=== PATIENT | male | born 1970 | race Two or more races ===

== ENCOUNTER 2024-09-14 00:53 | Emergency (ER) | payer MEDICAID ==
[~2024-09-14] VITALS: Ht 175.3 cm; Wt 93.0 kg
[2024-09-14 02:13] VITALS: BP 136/94; TEMP 98; O2SAT 97
== END 2024-09-14 02:14 | disposition home or self-care (01) ==
LOC: ER 01:01
DX: S86.111A Strain of other muscle(s) and tendon(s) of posterior muscle group at lower leg level, right leg, initial encounter (principal); Z60.2 Problems related to living alone; W10.8XXA Fall (on) (from) other stairs and steps, initial encounter; Y93.01 Activity, walking, marching and hiking; Y92.89 Other specified places as the place of occurrence of the external cause; Y99.8 Other external cause status
CPT/HCPCS: A4606; A4663